=== PATIENT | male | born 1995 | race Caucasian/White ===

== ENCOUNTER 2023-06-11 18:25 | Emergency (ER) | payer BC ==
[~2023-06-11] VITALS: Ht 180.3 cm; Wt 86.2 kg
[2023-06-11 23:46] LABS: HEMATOCRIT 47.1 % (39.0-48.0); HEMOGLOBIN 15.9 g/dL (13-16.00); MEAN CELL VOLUME 84.7 fL (80.0-100.00); MEAN CORPUSCULAR HEMOGLOBIN 28.6 pg (27.00-32.0); MEAN CORPUSCULAR HGB CONC 33.8 g/dl (32.0-36.0); PLATELET COUNT 271 K/uL (150-450); RED BLOOD COUNT 5.57 M/uL (4.00-6.00); RED CELL DISTRIBUTION WIDTH 13.4 % (11.5-14.5)
[2023-06-12 00:10] LABS: ALBUMIN 4.1 gm/dL (3.4-5.0); BILIRUBIN TOTAL 0.45 mg/dL (0.3-1.2); CALCIUM 9.3 mg/dL (8.5-10.1); CREATININE SERUM 1.09 mg/dL (0.70-1.30); GFR 82.42; GLOBULINA 3.9 G/DL (2.4-3.5); POTASSIUM 3.75 mEq/L (3.5-5.1)
== END 2023-06-12 00:52 | disposition home or self-care (01) ==
LOC: ER 18:25
PROVIDERS: General Practice
DX: T78.49XA Other allergy, initial encounter (principal)